=== PATIENT | female | born 1965 | race Caucasian/White ===

== ENCOUNTER → 2018-06-29 12:25 | Outpatient (CLI) | payer OTHER, SELFPAY ==
[2018-06-29 15:03] LABS: Alanine Aminotransferase 43 IU/L (9-52); Albumin 4.4 g/dL (3.5-5.0); Albumin Globulin Ratio 1.4 (1.0-2.8); Alkaline Phosphatase 83 U/L (38-126); Aspartate Aminotransferase 28 IU/L (14-36); BUN Creatinine Ratio 28.3 (6-22); Bilirubin Total 0.7 mg/dL (0.2-1.3); Blood Urea Nitrogen 17 mg/dL (7-17); Calcium 9.1 mg/dL (8.4-10.2); Carbon Dioxide 28 mmol/L (22-32); Chloride 103 mmol/L (98-107); Cholesterol 139 mg/dL (140-199); Estimated Glomerular Filt Rate > 60.0 mL/min (>60); Globulin 3.1 g/dL (1.7-4.1); Glucose 108 mg/dL (70-100); HDL Cholesterol 38 mg/dL (40-60); HEMOLYSIS < 15 (0-50); LDL Cholesterol Calculated 72 mg/dL (<100); Potassium 4.3 mmol/L (3.4-5.1); Sodium 143 mmol/L (137-145); Total Protein 7.5 g/dL (6.3-8.2); Triglycerides 146 mg/dL (35-150)
[2018-06-29 15:18] LABS: Vitamin D 25 Hydroxy (D3) 33.1 ng/mL (30.0-100.0)
== END ==
PROVIDERS: PCP Physician Assistant; Visit Provider Physician Assistant
DX: E55.9 Vitamin D deficiency, unspecified (principal); E78.5 Hyperlipidemia, unspecified
CPT/HCPCS: 36415; 80053; 80061; 82306

== ENCOUNTER → 2018-10-14 13:44 | Outpatient (CLI) | payer OTHER, SELFPAY | PROVIDERS: Family Provider Physician Assistant; PCP Physician Assistant; Visit Provider Physician Assistant | DX: R07.0 Pain in throat (principal) | CPT/HCPCS: 87070 ==

== ENCOUNTER → 2019-03-29 12:42 | Outpatient (CLI) | payer OTHER, SELFPAY ==
--- NOTE | 2019-03-29 12:44 | DI.MG.S_ITS ---
BILATERAL DIGITAL DIAGNOSTIC MAMMOGRAM 3D/2D: 03/29/2019 CLINICAL: Pain in the left breast- possible mass deep @ appoximately 2 oclock. Comparison is made to exams dated: 08/31/2017 mammogram, 06/17/2016 mammogram, and 06/20/2014 mammogram - [facility]. The tissue of both breasts is heterogeneously dense. This may lower the sensitivity of mammography. No significant masses, calcifications, or other findings are seen in either breast. IMPRESSION: INCOMPLETE: NEEDS ADDITIONAL IMAGING EVALUATION There is no abnormality seen in the left breast to correspond with the palpable abnormality at 2 o'clock, however, ultrasound is recommended. This exam was interpreted at Station ID: [id number]. NOTE: For mammograms, a report in lay terms will be sent to the patient. Approximately 15% of breast malignancies will not be visualized mammographically. In the management of a palpable breast mass, a negative mammogram must not discourage biopsy of a clinically suspicious lesion. Electronically Signed By: Keith whalen/iglesia:03/29/2019 13:33:18 ACR BI-RADS Category 0: Incomplete 3340F
--- NOTE | 2019-03-29 12:44 | DI.US.S_ITS ---
LIMITED ULTRASOUND OF LEFT BREAST: 03/29/2019 CLINICAL: Focal left breast pain. Comparison is made to exams dated: 03/29/2019 mammogram, 08/31/2017 mammogram, 06/17/2016 mammogram, 06/20/2014 mammogram, 12/27/2012 mammogram, and 11/11/2011 mammogram - [facility]. Real-time ultrasound of the left breast 2 o'clock region was performed on the area of interest. IMPRESSION: NEGATIVE There is no sonographic evidence of malignancy. There is no abnormality seen in the left breast to correspond with the palpable abnormality at 2 o'clock, however, clinical followup is recommended. A 1 year screening mammogram is recommended. This exam was interpreted at Station ID: [id number]. Electronically Signed By: Keith whalen/iglesia:03/29/2019 15:06:26 letter sent: Clinical Evaluation Ultrasound BI-RADS: 1 Negative
== END ==
PROVIDERS: PCP Physician Assistant; Visit Provider Physician Assistant
DX: R92.8 Other abnormal and inconclusive findings on diagnostic imaging of breast (principal); N64.4 Mastodynia
CPT/HCPCS: 76642; 77066; G0279

== ENCOUNTER 2019-08-09 08:58 | Day surgery (SDC) | payer OTHER, SELFPAY ==
[2019-08-09] MEDS: SODIUM CHLORIDE 0.9% 1,000 ML 200 ML IV ×2 (09:13→10:32)
[2019-08-09 09:23] VITALS: BP 143/90; PULSE 108; RESP 20; TEMP 36.9; O2SAT 95; BMI 35.5
--- NOTE | 2019-08-09 09:57 | PM.HP.1 ---
History of Present Illness History of Present Illness Date Patient Seen: 08/09/19 Time Patient Seen: 09:57 Chief complaint: [id number] Narrative: This is a 54-year-old woman with history of hypertension, constipation, sleep apnea, hernia repair, x3 was here for her 1st screening colonoscopy. She denies any history of melena, hematochezia, unexplained abdominal pain, unexplained weight loss. She has a cousin who has been diagnosed with colorectal cancer at age 40, but no primary relatives with polyps or colon cancers that she knows of. ROS: Thirteen system review is otherwise negative other than as mentioned below and in HPI. PE: GENERAL: Well groomed and cooperative. Appears stated age. Answers questions promptly and appropriately. Vital signs noted. HENT: Normocephalic, atraumatic. Hearing intact. Oral mucosa is pink and moist. EYES: Conjunctiva pink, sclera white, no periorbital swelling. CARDIOVASCULAR: Regular rate. No pedal edema. RESPIRATORY: Non-tachypneic, breathing comfortably on room air. GASTROINTESTINAL: Abdomen soft and non-distended GENITALURINARY: No flank tenderness. MUSCULOSKELETAL: Equal tone and mass bilaterally. SKIN: Warm, dry, soft, appropriate color for ethnicity. No other lesions, rashes, or wounds. NEURO: Alert and Oriented X 3. No gross sensory deficits, or cognitive issues. PSYCH: Appropriate affect and mood. Patient History Family & Social History Family History Mother Hyperlipidemia Social History: household members spouse Tobacco & Substance use: Smoking Status Never smoker alcohol intake current alcohol intake frequency holiday/special occasion Meds Home Medications and Allergies Home Medications Medication Instructions Recorded Confirmed Type [VITAMIN D3] 1 tab PO QDAY #0 06/08/17 06/04/19 History aspirin 81 mg PO QDAY #0 06/08/17 08/09/19 History varicella-zoster gE-AS01B (PF) 50 0.5 ml IM ONCE #1 each 06/18/18 06/04/19 Rx mcg/0.5 mL IM susp, kit CO-Q-10 1 cap PO .QDAY 10/23/18 08/09/19 History atorvastatin 40 mg tablet 40 mg PO HS #90 tab 04/22/19 08/09/19 Rx zolpidem 10 mg tablet 5 mg PO HSP PRN #15 tab 05/28/19 08/09/19 Rx escitalopram oxalate 20 mg tablet 20 mg PO Q DAY #90 tab 06/28/19 08/09/19 Rx Allergies Allergy/AdvReac Type Severity Reaction Status Date / Time No Known Allergies Allergy Uncoded 08/09/19 09:13 Exam Vital Signs (past 8 hours): - 08/09/19 09:23 Temperature 98.4 F Pulse Rate 108 H Respiratory Rate 20 Blood Pressure 143/90 H Pulse Oximetry 95 Oxygen Delivery Method Room Air Assessment & Plan Assessment and plan (1) At average risk for colon cancer: Current visit: Yes Status: Acute (2) Encounter for screening colonoscopy: Current visit: Yes Status: Acute Assessment & Plan narrative: Risks and benefits of screening colonoscopy were discussed including risk of bleeding, perforation, need for additional procedures. The patient desires to proceed with her colonoscopy procedure. Time Spent With Patient Time with patient: 15-24 minutes Quality VTE Deep Vein Thrombosis/Pulmonary Embolism Present on Admission: No
--- NOTE | 2019-08-09 10:46 | PM.OP.ENDO ---
Operative Date/Time/Diagnoses Date of procedure: 08/09/19 Time of procedure: 10:46 Pre-op diagnosis: Average risk for colon cancer Post-op diagnosis: same Procedure & Clinicians Study performed: Screening colonoscopy Same procedure as scheduled: Yes Indications: Average risk for colon cancer, appropriate age for screening colonoscopy Surgeon: Nancy Saavedra Procedure Notes SCOAP/Timeout: Performed Procedure in detail: The patient was brought to the room and placed in left lateral decubitus position with all bony prominences padded. A time-out was performed and then the patient was given procedural sedation starting with [4] mg of Versed and [100] mcg of fentanyl. Total of 9 mg of Versed and 250 micro g of fentanyl were given for the entire procedure. Vitals were monitored throughout the procedure and remained stable. Once adequately sedated the procedure was begun. A rectal exam was performed revealing external hemorrhoid remnant flaps, otherwise normal. The colonoscope was then introduced to the rectum and advanced to the cecum in the usual fashion. [The colon was very tortuous and required multiple maneuvers to get to the cecum safely.]The cecum was identified by the appendiceal orifice, the mucosal tri-fold, and the ileocecal valve. The scope was then retracted while rotating side to side and examining each mucosal fold. [No polyps or masses were seen. No diverticulosis was seen.] At the conclusion of the procedure retroflexion was performed and [grade 2 internal hemorrhoids without stigmata of bleeding were seen]. The scope was then withdrawn from the rectum the procedure was concluded. The patient tolerated the procedure well and was transferred to the PACU in stable condition. Scope withdrawal time: 10 Sedation minutes: 47 Findings: internal hemorrhoids Specimen(s): none sent Complications: none Impression: Very tortuous colon, grade 2 internal hemorrhoids, otherwise normal Post-procedure Recommendations: Colonscopy in 10 years (Sooner if any symptoms arise such as blood in the stool, dark tarry appearing stool, unexplained abdominal pain, or unexplained weight loss) Follow up: as needed Disposition: PACU
[2019-08-09] MEDS: MIDAZOLAM 5 MG/5 ML VIAL IV (10:48)
[2019-08-09] MEDS: fentaNYL 250 MCG/5 ML INJ IV (10:49)
[2019-08-09 10:52] VITALS: BP 116/72; PULSE 72; RESP 10; TEMP 36.7; O2SAT 98
[2019-08-09 10:57] VITALS: BP 126/76; PULSE 85; RESP 16; O2SAT 96
[2019-08-09 11:02] VITALS: BP 127/74; PULSE 70; RESP 12; TEMP 36.4; O2SAT 97
[2019-08-09 11:26] VITALS: BP 131/77; PULSE 79; RESP 16; TEMP 36.7; O2SAT 98
== END 2019-08-09 11:20 | disposition home or self-care (01) ==
PROVIDERS: PCP Physician Assistant; Visit Provider Surgery
PROC: 0DJD8ZZ Inspection of Lower Intestinal Tract, Via Natural or Artificial Opening Endoscopic (ICD-10-PCS; CPT 45378; principal; 2019-08-09 10:00)
DX: Z12.11 Encounter for screening for malignant neoplasm of colon (principal); K64.1 Second degree hemorrhoids
CPT/HCPCS: 45378; 99152; 99153; J2250; J3010

== ENCOUNTER → 2019-08-14 12:35 | Outpatient (CLI) | payer OTHER, SELFPAY ==
[2019-08-14 14:08] LABS: Alanine Aminotransferase 35 IU/L (<35); Albumin 4.5 g/dL (3.5-5.0); Albumin Globulin Ratio 1.4 (1.0-2.8); Alkaline Phosphatase 87 U/L (38-126); Aspartate Aminotransferase 32 IU/L (14-36); Bilirubin Total 0.7 mg/dL (0.2-1.3); Blood Urea Nitrogen 12 mg/dL (7-17); Calcium 9.2 mg/dL (8.4-10.2); Carbon Dioxide 29 mmol/L (22-32); Chloride 102 mmol/L (98-107); Cholesterol 166 mg/dL (140-199); Estimated Glomerular Filt Rate > 60.0 mL/min (>60); Globulin 3.3 g/dL (1.7-4.1); Glucose 93 mg/dL (70-100); HDL Cholesterol 34 mg/dL (40-60); HEMOLYSIS < 15 (0-50); LDL Cholesterol Calculated 94 mg/dL (<100); Potassium 3.4 mmol/L (3.4-5.1); Sodium 140 mmol/L (137-145); Total Protein 7.8 g/dL (6.3-8.2); Triglycerides 189 mg/dL (35-150)
[2019-08-14 14:37] LABS: Thyroid Stimulating Hormone 2.39 uIU/mL (0.47-4.68)
== END ==
PROVIDERS: PCP Physician Assistant; Visit Provider Physician Assistant
DX: E78.5 Hyperlipidemia, unspecified (principal); R53.83 Other fatigue
CPT/HCPCS: 36415; 80053; 80061; 84443

== ENCOUNTER → 2021-03-01 08:15 | Outpatient (CLI) | payer OTHER, SELFPAY ==
--- NOTE | 2021-03-01 | DI.MG.S_ITS ---
BILATERAL DIGITAL SCREENING MAMMOGRAM 3D/2D WITH CAD: 03/01/2021 CLINICAL: Routine screening. Family history of breast cancer. Comparison is made to exams dated: 03/29/2019 mammogram, 08/31/2017 mammogram, and 06/17/2016 mammogram - [facility]. The tissue of both breasts is heterogeneously dense. This may lower the sensitivity of mammography. Current study was also evaluated with a Computer Aided Detection (CAD) system. No significant masses, calcifications, or other findings are seen in either breast. There has been no significant interval change. IMPRESSION: NEGATIVE There is no mammographic evidence of malignancy. A 1 year screening mammogram is recommended. This exam was interpreted at Station ID: [id number]. NOTE: For mammograms, a report in lay terms will be sent to the patient. Approximately 15% of breast malignancies will not be visualized mammographically. In the management of a palpable breast mass, a negative mammogram must not discourage biopsy of a clinically suspicious lesion. Electronically Signed By: John moody/iglesia:03/01/2021 08:46:07 letter sent: Normal Exam ACR BI-RADS Category 1: Negative 3341F
== END ==
PROVIDERS: PCP Internal Medicine; Referring Provider Internal Medicine; Visit Provider Internal Medicine
DX: Z12.31 Encounter for screening mammogram for malignant neoplasm of breast (principal); Z80.3 Family history of malignant neoplasm of breast
CPT/HCPCS: 77063; 77067

== ENCOUNTER → 2022-06-29 11:47 | Outpatient (ROUT) | payer OTHER, SELFPAY ==
[2022-06-29 14:30] LABS: Influenza A - CEPHEID Flu A NEGATIVE (NEGATIVE); Influenza B - CEPHEID Flu B NEGATIVE (NEGATIVE); Respiratory Syncytial Virus Negative (Negative)
[2022-06-29 14:35] LABS: COVID-19 CEPHEID 4-PLEX PCR Negative (Negative)
== END ==
PROVIDERS: PCP Internal Medicine; Visit Provider Internal Medicine
DX: J02.9 Acute pharyngitis, unspecified (principal)
CPT/HCPCS: 0241U

== ENCOUNTER → 2022-08-10 12:27 | Outpatient (CLI) | payer OTHER, SELFPAY ==
--- NOTE | 2022-08-10 | DI.MG.S_ITS ---
BILATERAL DIGITAL SCREENING MAMMOGRAM 3D/2D WITH CAD: 08/10/2022 CLINICAL: Routine screening. Family history of breast cancer. Comparison is made to exams dated: 03/01/2021 mammogram, 03/29/2019 mammogram, and 08/31/2017 mammogram - [facility]. Both breasts are heterogeneously dense, which may obscure small masses (category c / 51-75% glandular tissue). Current study was also evaluated with a Computer Aided Detection (CAD) system. No significant masses, calcifications, or other findings are seen in either breast. There has been no significant interval change. IMPRESSION: NEGATIVE There is no mammographic evidence of malignancy. A 1 year screening mammogram is recommended. Based on the Tyrer Cuzick model (a risk assessment model) the patient's lifetime risk is 9.4% and her 10 year risk is 3.2%. According to the ACR, ACS, and NCCN guidelines, an annual breast MRI exam along with mammogram is recommended if the patient's lifetime risk is 20% or greater. This exam was interpreted at Station ID: [id number]. NOTE: For mammograms, a report in lay terms will be sent to the patient. Approximately 15% of breast malignancies will not be visualized mammographically. In the management of a palpable breast mass, a negative mammogram must not discourage biopsy of a clinically suspicious lesion. Electronically Signed By: Kaur colvin/iglesia:08/10/2022 15:06:41 letter sent: Normal Exam ACR BI-RADS Category 1: Negative 3341F
== END ==
PROVIDERS: PCP Internal Medicine; Referring Provider Internal Medicine; Visit Provider Internal Medicine
DX: Z12.31 Encounter for screening mammogram for malignant neoplasm of breast (principal); Z80.3 Family history of malignant neoplasm of breast
CPT/HCPCS: 77063; 77067

== ENCOUNTER → 2023-09-11 10:56 | Outpatient (CLI) | payer OTHER, SELFPAY ==
--- NOTE | 2023-09-11 10:57 | DI.MG.S_ITS ---
BILATERAL DIGITAL SCREENING MAMMOGRAM 3D/2D WITH CAD: 09/11/2023 CLINICAL: Routine screening. Family history of breast cancer. Comparison is made to exams dated: 08/10/2022 mammogram, 03/01/2021 mammogram, and 03/29/2019 mammogram - [facility]. Both breasts are heterogeneously dense, which may obscure small masses (category c / 51-75% glandular tissue). Current study was also evaluated with a Computer Aided Detection (CAD) system. No significant masses, calcifications, or other findings are seen in either breast. There has been no significant interval change. IMPRESSION: NEGATIVE There is no mammographic evidence of malignancy. A 1 year screening mammogram is recommended. Based on the Tyrer Cuzick model (a risk assessment model) the patient's lifetime risk is 9.2% and her 10 year risk is 3.4%. According to the ACR, ACS, and NCCN guidelines, an annual breast MRI exam along with mammogram is recommended if the patient's lifetime risk is 20% or greater. This exam was interpreted at Station ID: [id number]. NOTE: For mammograms, a report in lay terms will be sent to the patient. Approximately 15% of breast malignancies will not be visualized mammographically. In the management of a palpable breast mass, a negative mammogram must not discourage biopsy of a clinically suspicious lesion. Electronically Signed By: Anastacio sales/iglesia:09/11/2023 16:46:42 letter sent: Normal Exam ACR BI-RADS Category 1: Negative 3341F
== END ==
LOC: MAMMO 10:56
PROVIDERS: PCP Internal Medicine; Referring Provider Internal Medicine; Visit Provider Internal Medicine
DX: Z12.31 Encounter for screening mammogram for malignant neoplasm of breast (principal); Z80.3 Family history of malignant neoplasm of breast; R92.333 Mammographic heterogeneous density, bilateral breasts
CPT/HCPCS: 77063; 77067

== ENCOUNTER → 2023-11-20 18:04 | Outpatient (CLI) | payer OTHER, SELFPAY ==
--- NOTE | 2023-11-20 18:05 | DI.RAD.S_ITS ---
PROCEDURE: XR CHEST 2V INDICATIONS: Cough TECHNIQUE: 2 views of the chest were acquired. COMPARISON: None. FINDINGS: Surgical changes and devices: None. Lungs and pleura: Lungs are clear. No pleural effusions or pneumothorax. Mediastinum: Mediastinal contours are normal. Heart size is normal. Bones and chest wall: No suspicious bony abnormalities. Soft tissues appear unremarkable. IMPRESSION: No acute cardiopulmonary abnormality is seen. Dictated by: Bradford Mcclain M.D. on 11/21/2023 at 8:15 Approved by: Bradford Mcclain M.D. on 11/21/2023 at 8:15
== END ==
PROVIDERS: PCP Internal Medicine; Referring Provider Nurse Practitioner Family; Visit Provider Nurse Practitioner Family
DX: R05.9 Cough, unspecified (principal)
CPT/HCPCS: 71046

== ENCOUNTER → 2024-11-05 16:45 | Outpatient (CLI) | payer OTHER, SELFPAY ==
--- NOTE | 2024-11-05 16:46 | DI.MG.S_ITS ---
MM screening mammo BI: 11/05/2024. BI-RADS: 1 CLINICAL: 59-year old female for bilateral screening mammogram. Tyrer-Cuzick lifetime risk of 23.8%. Current reported family history of breast cancer: maternal grandmother and mother. PRIOR EXAMS 09/11/2023, 08/10/2022, 03/01/2021, 03/29/2019, 08/31/2017, 06/17/2016. MAMMOGRAPHY TECHNIQUE: 2D and 3D (tomosynthesis) digital mammographic views obtained, with additional images as needed for full coverage. Current study was also evaluated with a Computer Aided Detection (CAD) system. DENSITY C. The breasts are heterogeneously dense, which may obscure small masses. MAMMOGRAPHY FINDINGS Bilateral: No suspicious mass, asymmetry, microcalcification, or other abnormality seen. No significant change from comparison. IMPRESSION: * No evidence of malignancy. RECOMMENDATIONS Bilateral * According to the Tyrer-Cuzick Risk Assessment Model, based on the information provided your patient has a greater than 20% lifetime risk for developing breast cancer. Consider supplemental screening with breast MRI and participation in a high risk screening program. * Annual screening mammography. OVERALL ASSESSMENT CATEGORY BI-RADS-1: Negative. The [employer] recommends annual screening mammography beginning at age 40 for women with average risk of breast cancer. ELECTRONICALLY SIGNED: Avis Silverio M.D. on 11/06/2024 at 09:06:35 AM PT Interpreting Station ID: [id number]
== END ==
LOC: MAMMO 16:46
PROVIDERS: PCP Registered Nurse; Referring Provider Internal Medicine; Visit Provider Internal Medicine
DX: Z12.31 Encounter for screening mammogram for malignant neoplasm of breast (principal); Z80.3 Family history of malignant neoplasm of breast; R92.333 Mammographic heterogeneous density, bilateral breasts
CPT/HCPCS: 77063; 77067

== ENCOUNTER → 2025-05-05 15:17 | Outpatient (CLI) | payer OTHER, SELFPAY ==
--- NOTE | 2025-05-05 15:19 | DI.MRI.S_ITS ---
MR breast BI wo con: 05/05/2025. BI-RADS: None CLINICAL: 59-year old female referred for high risk screening breast MRI. Current reported family history of breast cancer: maternal grandmother and mother. PRIOR EXAMS Mammogram(s): 11/05/2024. Seven Other Exams on 09/11/2023, 08/10/2022, 03/01/2021, 03/29/2019, 08/31/2017, 06/17/2016. MRI TECHNIQUE Bilateral breast MRI was performed on a 1.5 Bonnie magnet using a dedicated breast coil with mild compression. Only axial T2 STIR sequence was acquired and remainder of exam was terminated at patient's request. BREAST FINDINGS Non-diagnostic exam with single axial STIR sequence acquired. Exam terminated at patient's request. OVERALL ASSESSMENT CATEGORY BI-RADS None: This exam requires no BI-RADS. ELECTRONICALLY SIGNED: Awilda Larson M.D. on 05/07/2025 at 12:47:01 PM PT Interpreting Station ID: [id number]
== END ==
LOC: MRI 15:18
PROVIDERS: PCP Registered Nurse; Referring Provider Registered Nurse; Visit Provider Registered Nurse
DX: Z12.39 Encounter for other screening for malignant neoplasm of breast (principal); Z91.89 Other specified personal risk factors, not elsewhere classified; Z80.3 Family history of malignant neoplasm of breast
CPT/HCPCS: 77049; 77047; A9579